=== PATIENT | female | born 1945 | race Caucasian/White ===

== ENCOUNTER → 2016-06-16 | Outpatient (CLI) | payer OTHER ==
--- NOTE | 2016-06-16 14:12 | MR ---
MRI of the Brain (Without Contrast) at 1235 hours Clinical Indication: Memory loss, R 41.3 Technique: T1-weighted images were acquired axially and sagittally from the foramen magnum to the ve rtex. Axial fast inversion recovery, fast T2-weighted, and diffusion-weighted axial images were obta ined without contrast. Findings: The ventricles, cisterns, and sulci are widened consistent with atrophy. Asymmetric atroph y of bilateral parietal lobes. No hydrocephalus, midline shift, herniation, or epidural/subdural filipe netta. No intracranial hemorrhage or masses. Diffusion weighted sequence demonstrates no acute infarc t. Cerebellar tonsils are in normal position. Pituitary gland is normal in size. Normal signal flow-v oid in the superior sagittal sinus, basilar artery, and bilateral internal carotid arteries indicatin g patency. Paranasal sinuses and mastoid air cells are clear. Scattered hyperintense T2/FLAIR signal foci throughout bilateral cerebral white matter. Impression: 1. Severe diffuse cerebral atrophy. 2. No acute infarct, hemorrhage, hydrocephalus, mass effect, or herniation. 3. Multiple nonspecific hyperintense T2/FLAIR signal abnormalities in the white matter of bilateral c erebral hemispheres. Differential diagnosis includes moderate microvascular ischemic gliosis, post-i nfectious/post-inflammatory sequela, versus less likely atypical demyelinating disease, or migraine-r elated sequela.
== END ==
LOC: FIMAGING 12:14
PROVIDERS: ATTEND Emergency Medicine
DX: R41.3 Other amnesia (principal); R94.02 Abnormal brain scan; E87.5 Hyperkalemia

== ENCOUNTER → 2016-06-30 | Outpatient (CLI) | payer OTHER ==
--- NOTE | 2016-06-30 16:57 | MA ---
Screening Digital Mammogram With iCAD Analysis Clinical Indications: Routine screening. Technique: Standard cephalocaudal and mediolateral oblique projections were obtained. This examinatio n was processed by the iCAD computer aided detection system. Comparison: October 2014, February 2012, April 2010, February 2009. Breast density: Type C; Heterogeneously dense. Findings: CAD was reviewed. There is possible developing asymmetry noted in the outer left breast on the craniocaudal view. This may correlate to an asymmetry noted in the upper left breast on oblique v iew. No suspicious microcalcifications are seen. The right breast is stable in appearance. Vascular calcifications are noted. Impression: Possible developing left breast asymmetry requires further evaluation, BI-RADS 0. Recommendation: Spot compression assessment of the right breast with ultrasound suggested if the abno rmality persists on diagnostic evaluation. On License Of [facility] will send a result letter to the patient. Dense breast parenchyma diminishes mammographic sensitivity. Negative mammography should not preclude additional workup of a clinically suspicious finding. The patient's information is entered into a reminder system with a target due date for her next mammo gram.
== END ==
LOC: BMCIMAGING 14:22
DX: Z12.31 Encounter for screening mammogram for malignant neoplasm of breast (principal)
CPT/HCPCS: G0202

== ENCOUNTER → 2016-07-15 | Outpatient (CLI) | payer OTHER | LOC: BMCIMAGING 12:51 | DX: R92.8 Other abnormal and inconclusive findings on diagnostic imaging of breast (principal) | CPT/HCPCS: G0206 ==

== ENCOUNTER → 2016-08-05 | Outpatient (CLI) | payer OTHER | LOC: BMCIMAGING 13:18 | PROVIDERS: ATTEND Podiatrist Foot & Ankle Surgery | DX: M21.611 Bunion of right foot (principal); M21.612 Bunion of left foot ==

== ENCOUNTER → 2016-11-05 | Outpatient (CLI) | payer OTHER | LOC: FIMAGING 07:50 | PROVIDERS: ATTEND Orthopaedic Surgery | DX: M75.82 Other shoulder lesions, left shoulder (principal) ==

== ENCOUNTER → 2017-03-07 | Outpatient (CLI) | payer OTHER | LOC: BMCIMAGING 12:54 | PROVIDERS: ATTEND Family Medicine | DX: I65.22 Occlusion and stenosis of left carotid artery (principal) ==

== ENCOUNTER → 2017-03-23 | Outpatient (CLI) | payer OTHER | LOC: FIMAGING 13:46 | PROVIDERS: ATTEND Psychiatry & Neurology Neurology | DX: R93.0 Abnormal findings on diagnostic imaging of skull and head, not elsewhere classified (principal) ==

== ENCOUNTER → 2017-09-13 | Outpatient (CLI) | payer OTHER | LOC: BMCIMAGING 14:41 | PROVIDERS: ATTEND Family Medicine | DX: Z12.31 Encounter for screening mammogram for malignant neoplasm of breast (principal) ==

== ENCOUNTER → 2018-03-23 | Outpatient (CLI) | payer OTHER | LOC: BMCIMAGING 13:46 | PROVIDERS: ATTEND Family Medicine | DX: R09.89 Other specified symptoms and signs involving the circulatory and respiratory systems (principal); E04.1 Nontoxic single thyroid nodule ==

== ENCOUNTER → 2018-03-30 | Outpatient (CLI) | payer OTHER | LOC: FIMAGING 13:17 | PROVIDERS: ATTEND Family Medicine | DX: E04.1 Nontoxic single thyroid nodule (principal) ==

== ENCOUNTER → 2018-04-04 | Outpatient (CLI) | payer OTHER ==
[~2018-04-04] MED LIST: LIDOCAINE 1% 300 MG/30 ML SDV ONE
== END ==
LOC: FIMAGING 08:09
PROVIDERS: ATTEND Family Medicine
PROC: 0G9K3ZZ Drainage of Thyroid Gland, Percutaneous Approach (ICD-10-PCS; principal; 2018-04-04)
DX: E04.1 Nontoxic single thyroid nodule (principal)

== ENCOUNTER → 2018-07-12 | Outpatient (CLI) | payer OTHER | LOC: BMCIMAGING 12:31 | PROVIDERS: ATTEND Family Medicine | DX: M25.461 Effusion, right knee (principal); M25.861 Other specified joint disorders, right knee ==